=== PATIENT | male | born 2000 | race Caucasian/White ===

== ENCOUNTER 2025-01-31 15:08 | Emergency (ER) | payer MEDICAID ==
[~2025-01-31] VITALS: Ht 180.3 cm; Wt 52.7 kg
--- NOTE | 2025-01-31 17:26 | Physician Documentation ---
History of Present Illness ~ Chief Complaint: Abscess Stated Complaint: ABSCESS Time Seen by MD: 15:53 HPI Patient is seen today with complaints of an abscess of his buttocks of the right buttocks. Patient states it started draining a couple of days ago. Patient states he does have multiple bone fractures from 1-2 years ago. Patient denies any fevers or chills. Patient has no other concern or complaint at this time. Medication Reconciliation Allergies: Coded Allergies: No Known Allergies (Unverified , 01/31/25) Review of Systems Constitutional: Denies: chills, fever, weakness Eyes: Denies: pain, blurred vision ENT: Denies: ear pain, nose pain, throat pain, mouth pain Respiratory: Denies: cough, shortness of breath Cardiovascular: Denies: chest pain, palpitations Gastrointestinal: Denies: abdominal pain, nausea, vomiting Genitourinary: Denies: burning, dysuria Male Genitalia: Denies: penile discharge, testicular pain Neurological: Denies: headache, dizziness Musculoskeletal: Denies: pain, swelling Integumentary: Denies: rash, lesions Allergic/Immunologic: Denies: hives, itching Hematologic/Lymphatic: Denies: no symptoms reported Psychiatric: Denies: depression, anxiety Physical Exam Vital Signs: Temperature: 98.3, Source: Oral, Heart Rate: 90, Respiratory Rate: 16, BP: 121/75, Pulse Oximetry: 98, Weight: 52.700 Oxygen Flow Rate: 0 Physical Exam General: Awake and Alert, no acute distress. HEENT: Conjunctiva pink, Sclera clear, Mucus Membranes moist. Neck: Supple without masses and tenderness. Resp: Unlabored. Lungs clear to auscultation bilaterally. Heart: Regular Rate and rhythm, normal S1 and S2 without murmur, rub or gallop. Extremities: No cyanosis,clubbing or edema. Skin: Patient on exam does have abscess of the buttocks with surrounding induration and erythema with purulent drainage of the right buttocks near the gluteal cleft. Induration measures a proximally 3 cm in diameter. Progress Results/Orders Results/Orders Vital Signs 01/31/25 15:10 Temp 98.3 Pulse 90 Resp 16 B/P (MAP) 121/75 Pulse Ox 98 O2 Flow Rate 0 Medical Decision Making Findings Patient is seen today with complaints of an abscess of his buttocks of the right buttocks. Patient states it started draining a couple of days ago. Patient states he does have multiple bone fractures from 1-2 years ago. Patient denies any fevers or chills. Patient has no other concern or complaint at this time. Shared decision-making utilized today with the patient. Patient is started on Bactrim DS in the ED and prescription sent to his pharmacy. Patient will also be instructed on daily wound care and dressing changes. Patient will follow up with primary care in 2-5 days if no better as needed sooner. Return to ED with any worsening, concerning or changing symptoms. Departure Disposition: HOME / SELF CARE / HOMELESS Impression: Primary Impression: Abscess Condition: Stable Discharge Instructions: Skin Abscess, [id number] Additional Instructions: Shared decision-making utilized today with the patient. Patient is started on Bactrim DS in the ED and prescription sent to his pharmacy. Patient will also be instructed on daily wound care and dressing changes. Patient will follow up with primary care in 2-5 days if no better as needed sooner. Return to ED with any worsening, concerning or changing symptoms. Referrals: NO PRIMARY CARE PROVIDER (PCP) Prescriptions Sulfamethoxazole/Trimethoprim (Bactrim Ds Tablet) 800 Mg-160 Mg Tablet 1 TAB PO Q12H for 10 Days, #20 TAB Prov: CAITLIN GALVAN 01/31/25 Signature Scribe Signature: No scribe Attestation: No scribe CAITLIN GALVAN Jan 31, 2025 17:26
[2025-01-31] MEDS ORDERED: SULF1TAB49 PO (17:36)
[2025-01-31] MEDS: sulfamethoxazole/trimethoprim DS (800/160mg) tablet PO STA (17:49)
[2025-01-31 18:15] VITALS: BP 112/70; PULSE 63; RESP 16; TEMP 98.3; O2SAT 99
== END 2025-01-31 18:17 | disposition home or self-care (01) ==
LOC: ER 15:10
DX: L02.31 Cutaneous abscess of buttock (principal)
CPT/HCPCS: 99283; A6449

== ENCOUNTER 2025-02-22 11:10 | Emergency (ER) | payer MEDICAID ==
[~2025-02-22] VITALS: Ht 182.9 cm; Wt 62.0 kg
[2025-02-22 11:12] VITALS: BP 98/67; PULSE 78; RESP 16; TEMP 97.5; O2SAT 99
--- NOTE | 2025-02-22 11:21 | Physician Documentation ---
History of Present Illness ~ General Chief Complaint: See Chief Complaint Stated Complaint: MED REQUEST Time Seen by MD: 11:15 History of Present Illness Initial Comments 24-year-old male in the ER requesting an MRI and antibiotics for an infection f rom a spider bite. Patient does see [facility] and states that there are bump that are infected. Patient states that there is tunneling and thumbs that he needs to know what is inside his body. Medication Reconciliation Allergies: Coded Allergies: No Known Allergies (Unverified , 02/22/25) Past Medical History Past Surgical History: no surgical history Drug Use: marijuana, methamphetamine Lives with: Alone Lives In: Homeless Occupation: unemployed Review of Systems All Other Systems at this time: Reviewed and Negative Physical Exam Physical Exam Vital Signs: RN Vital Signs have been reviewed: Yes, Temperature: 97.5, Source: Temporal, Heart Rate: 78, Respiratory Rate: 16, BP: 98/67, Pulse Oximetry: 99, Weight: 62.000 Oxygen Flow Rate: 0 General Appearance: alert, WD/WN, no apparent distress Head: normal inspection Respiratory: lungs clear, normal breath sounds, no respiratory distress Chest: no accessory muscle use, chest non-tender Cardiovascular: normal peripheral pulses, regular rate, rhythm, no murmur; No: JVD Skin: normal color, warm/dry Progress Results/Orders Results/Orders Medical Decision Making Findings 24-year-old polysubstance use wants MRI and antibiotics for infection and spider bites which he has been unable to produce signs of infection patient just charge to follow up with help and Departure Time of Disposition: 11:19 Disposition: 01 HOME / SELF CARE / HOMELESS Impression: Primary Impression: General medical exam Condition: Stable Discharge Instructions: General Discharge Instructions Additional Instructions: ER vital signs are reassuring without fever with normal heart rate and blood pressure. Has not they numb that she why feeling to the back of the leg has no signs of infection including redness or discharge. I would advise to follow up with the [facility] or primary care Referrals: NO PRIMARY CARE PROVIDER (PCP) Education Educated: Patient Educated regarding: diagnosis, treatment, need for follow up Signature Scribe Signature: No scribe Attestation: The note accurately reflects work and decisions made by me.Georgette SHIPLEY 02/22/25 11:21 GEORGETTE MUSTAFA NP Feb 22, 2025 11:21 LINUS KEY MD Feb 27, 2025 11:07
== END 2025-02-22 11:38 | disposition home or self-care (01) ==
LOC: ER 11:10
DX: T63.301A Toxic effect of unspecified spider venom, accidental (unintentional), initial encounter (principal); F12.90 Cannabis use, unspecified, uncomplicated; F15.90 Other stimulant use, unspecified, uncomplicated; Z59.00 Homelessness unspecified; Z56.0 Unemployment, unspecified; Z60.2 Problems related to living alone; Y92.89 Other specified places as the place of occurrence of the external cause
CPT/HCPCS: 99281; 99282

== ENCOUNTER 2025-03-02 13:19 | Emergency (ER) | payer MEDICAID ==
[~2025-03-02] VITALS: Ht 182.9 cm; Wt 59.1 kg
--- NOTE | 2025-03-02 14:35 | Physician Documentation ---
History of Present Illness ~ Chief Complaint: Wound Stated Complaint: REQUESTING MRI Time Seen by MD: 14:03 OK to notify your PCP?: Yes Source: patient Mode of Arrival: POV Exam Limitations: no limitations HPI 24 year old male with chief complaint painful bumps on his left buttock which he states he has had for about a week. He has been treating the bumps with putting a compress over them hoping that this would help to draw out the infection which was recommended by the nurse where he is staying which is at the [facility]. Since symptoms are not improving he decided to come to the ER today for evaluation. He states the areas that are painful on his left buttock are draining as when he takes the dressing off he does see that there is some drainage on the dressing. He is requesting an MRI to see if the two areas that are draining are communicating with each other he is however he has never had a fistula before no history of Crohn's or ulcerative colitis. No fever, chills. Tetanus Within 5 Years: No Medication Reconciliation Allergies: Coded Allergies: No Known Allergies (Unverified , 02/22/25) Past Medical History Past Surgical History: no surgical history Drug Use: marijuana, methamphetamine Lives with: Alone Lives In: Homeless Occupation: unemployed Review of Systems All Other Systems at this time: Reviewed and Negative Physical Exam Vital Signs: Temperature: 98.3, Source: Oral, Heart Rate: 98, Respiratory Rate: 18, BP: 121/67, Pulse Oximetry: 99, Weight: 59.090 Physical Exam General Appearance: Alert, WD/WN. NAD. HEENT: NCAT, PERRL, EOMI. Neck: Supple, trachea midline. Cardiovascular: RRR. No m/r/g. Lungs: CTAB. Breathing unlabored Extremities: Normal inspection. No edema. Skin: Warm/dry, normal color. Left buttock there are two distinct erythematous indurated areas measuring about 1cm each with a central opening in the skin is area appears to be around a hair follicle no current drainage but appears to have drained recently as dressing that is placed over the areas is wet. No odor. Areas indurated. I do not appreciate any fluctuance. Neurological: Alert and oriented x4, normal gait. Psychiatric: Affect congruent with mood. Procedures I & D Procedure : Anesthesia: Lidocaine w/ Epi Volume Anesthetic (mls): 3 Blade Size: 11 Prep/Supplies: betadine prep Incision: blood drained Tolerated Procedure Well?: yes, no complications Procedure Note NO PURULENT DRAINAGE EXPRESSED, ONLY BLOOD. I EXPLAINED TO THE PATIENT THAT THIS WAS NOT ALL THAT UNEXPECTED DUE TO LACK OF FLUCTANCE. DUE TO THE LACK OF PURULENT DRAINAGE, I ONLY PERFORMED I&D ON ONE OF THE TWO LOCATIONS. Progress Results/Orders Reviewed/noted all lab results: Yes Results/Orders Orders - PEÑA MUNOZ Cult (Aer) Routine C&S+Gram St (03/02/25 14:28) Laceration/I&D Tray Set Up (03/02/25 14:28) Completed Orders - PEÑA MUNOZ Lidocaine 1% W/Epi 1:100,000 (Xylocaine (03/02/25 14:30) Vital Signs 03/02/25 13:20 Temp 98.3 Pulse 98 Resp 18 B/P (MAP) 121/67 Pulse Ox 99 Medical Decision Making Differential Dx:Considerations: Include: Abscess, Bacteremia, Cellulitis, Erysipelas, Felon, Gas gangrene, Hidrademitis suppurativa, Impetigo, Lymphangitis, Osteromyelitis, Paronychia, Septicemia Additional Comment There is no evidence that these two distinct abscesses have formed a fistula. No fluctuance. Departure Time of Disposition: 14:31 Disposition: 01 HOME / SELF CARE / HOMELESS Impression: Primary Impression: Folliculitis Condition: Stable Discharge Instructions: Abscess, Care After Additional Instructions: ANTIBIOTIC DISCUSSED RETURN TO ER IF FEVER, CHILLS, INCREASING PAIN OR SWELLING Referrals: NO PRIMARY CARE PROVIDER (PCP) Prescriptions Doxycycline Monohydrate (Doxycycline Monohydrate) 100 Mg Capsule 1 CAP PO Q12H for 10 Days, #20 CAP Prov: PEÑA MUNOZ 03/02/25 Education Educated: Patient Educated regarding: diagnosis, treatment, need for follow up Signature Scribe Signature: X Attestation: PEÑA WELLS Mar 02, 2025 14:35
[2025-03-02] MEDS: LIDOcaine 1% W/epiNEPHrine 1:100,000 20ml vial SQ ONE (14:52)
[2025-03-02] MEDS ORDERED: DOXY-460 PO (15:08)
[2025-03-02 15:18] VITALS: BP 119/60; PULSE 61; RESP 15; TEMP 98.3; O2SAT 99
== END 2025-03-02 15:17 | disposition home or self-care (01) ==
LOC: ER 13:19
DX: L73.9 Follicular disorder, unspecified (principal); F12.90 Cannabis use, unspecified, uncomplicated; F15.90 Other stimulant use, unspecified, uncomplicated; Z56.0 Unemployment, unspecified; Z59.00 Homelessness unspecified
CPT/HCPCS: 10060; 87070; 87077; 87186; 99283; A6449